=== PATIENT | male | born 1950 | race Caucasian/White ===

== ENCOUNTER → 2019-11-18 15:25 | Outpatient (BNVA) | payer BC, MEDICARE, SELFPAY | PROVIDERS: Family Provider Family Medicine; PCP Registered Nurse; Visit Provider Nurse Practitioner Family | DX: E11.9 Type 2 diabetes mellitus without complications (principal); E83.42 Hypomagnesemia; E78.2 Mixed hyperlipidemia; E55.9 Vitamin D deficiency, unspecified | CPT/HCPCS: 80053; 80061; 81003; 82306; 83036; 83735; 84443 ==

== ENCOUNTER 2020-01-21 06:00 | Outpatient (RCR) | payer MEDICARE, BC, SELFPAY | END 2020-01-31 23:59 | disposition home or self-care (01) | LOC: WPT 06:00 | PROVIDERS: PCP Nurse Practitioner Family; Referring Provider Nurse Practitioner Family; Visit Provider Nurse Practitioner Family | DX: M54.5 Low back pain (principal); G89.29 Other chronic pain | CPT/HCPCS: 97110; 97140; 97161 ==

== ENCOUNTER 2020-02-01 06:00 | Outpatient (RCR) | payer MEDICARE, BC, SELFPAY | END 2020-03-01 23:59 | disposition home or self-care (01) | LOC: WPT 06:00 | PROVIDERS: PCP Nurse Practitioner Family; Referring Provider Nurse Practitioner Family; Visit Provider Nurse Practitioner Family | DX: M54.5 Low back pain (principal); G89.29 Other chronic pain | CPT/HCPCS: 97110; 97112 ==

== ENCOUNTER → 2020-02-19 00:01 | Outpatient (BNVA) | payer MEDICARE, BC, SELFPAY | PROVIDERS: PCP Nurse Practitioner Family; Visit Provider Nurse Practitioner Family | DX: E11.9 Type 2 diabetes mellitus without complications (principal); E78.2 Mixed hyperlipidemia; E55.9 Vitamin D deficiency, unspecified; I10 Essential (primary) hypertension; E83.42 Hypomagnesemia | CPT/HCPCS: 80053; 81003; 83036; 83735; 85025 ==

== ENCOUNTER → 2020-06-04 12:04 | Outpatient (BNVA) | payer MEDICARE, BC, SELFPAY | PROVIDERS: PCP Nurse Practitioner Family; Visit Provider Nurse Practitioner Family | DX: E11.9 Type 2 diabetes mellitus without complications (principal); I10 Essential (primary) hypertension; E78.2 Mixed hyperlipidemia; E83.42 Hypomagnesemia; E55.9 Vitamin D deficiency, unspecified | CPT/HCPCS: 80053; 80061; 81003; 82306; 83036; 83735; 84443; 85025 ==

== ENCOUNTER → 2020-11-09 10:59 | Outpatient (BNVA) | payer MEDICARE, BC, SELFPAY | PROVIDERS: PCP Nurse Practitioner Family; Visit Provider Nurse Practitioner Family | DX: E11.9 Type 2 diabetes mellitus without complications (principal) | CPT/HCPCS: 80053; 81003; 83036; 84153; 85025 ==

== ENCOUNTER → 2021-05-17 09:37 | Outpatient (BNVA) | payer MEDICARE, BC, SELFPAY | PROVIDERS: PCP Registered Nurse; Visit Provider Registered Nurse | DX: E11.9 Type 2 diabetes mellitus without complications (principal); I10 Essential (primary) hypertension | CPT/HCPCS: 80053; 83036; 85025 ==

== ENCOUNTER → 2021-09-07 10:37 | Outpatient (BNVA) | payer MEDICARE, BC, SELFPAY | PROVIDERS: PCP Registered Nurse; Visit Provider Registered Nurse | DX: R30.0 Dysuria (principal); E11.9 Type 2 diabetes mellitus without complications | CPT/HCPCS: 80053; 81000; 83036 ==

== ENCOUNTER → 2021-12-08 13:29 | Outpatient (BNVA) | payer MEDICARE, BC, SELFPAY | PROVIDERS: PCP Registered Nurse; Visit Provider Registered Nurse | DX: I10 Essential (primary) hypertension (principal); E78.2 Mixed hyperlipidemia; E11.9 Type 2 diabetes mellitus without complications | CPT/HCPCS: 80053; 83036 ==

== ENCOUNTER → 2022-03-14 10:42 | Outpatient (BNVA) | payer MEDICARE, BC, SELFPAY | PROVIDERS: PCP Registered Nurse; Visit Provider Registered Nurse | DX: E11.9 Type 2 diabetes mellitus without complications (principal); I10 Essential (primary) hypertension; E78.2 Mixed hyperlipidemia; R49.0 Dysphonia; F17.210 Nicotine dependence, cigarettes, uncomplicated; K59.00 Constipation, unspecified | CPT/HCPCS: 80053; 83036 ==

== ENCOUNTER → 2022-06-19 13:25 | Outpatient (BNVA) | payer MEDICARE, BC, SELFPAY | PROVIDERS: PCP Registered Nurse; Visit Provider Otolaryngology | DX: R49.0 Dysphonia (principal); J38.3 Other diseases of vocal cords; F17.210 Nicotine dependence, cigarettes, uncomplicated | CPT/HCPCS: 31575; 99204 ==

== ENCOUNTER → 2022-06-26 09:21 | Outpatient (BNVA) | payer MEDICARE, BC, SELFPAY | PROVIDERS: PCP Registered Nurse; Visit Provider Registered Nurse | DX: E11.9 Type 2 diabetes mellitus without complications (principal); R39.11 Hesitancy of micturition; I10 Essential (primary) hypertension; K59.00 Constipation, unspecified | CPT/HCPCS: 80053; 81000; 83036; 84153; 87086 ==

== ENCOUNTER 2022-06-29 12:53 | Day surgery (SDC) | payer MEDICARE, BC, SELFPAY ==
[2022-06-28 16:20] VITALS: BMI 30.2
[2022-06-29] VITALS (10 sets, daily range): BP systolic 118–157; BP diastolic 51–91; PULSE 71–82; RESP 16–18; TEMP 36.1–36.2; O2SAT 94–100
[2022-06-29] MEDS: sodium chloride 0.9% 1,000 ML 30 ML IV (13:53)
--- NOTE | 2022-06-29 14:57 | W.PM.OPSUD ---
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
[2022-06-29] MEDS: ceFAZolin 2,000 MG in sodium chloride 0.9% (plus) 50 ML 100 MG IV (15:02)
--- NOTE | 2022-06-29 15:25 | P.ANESASSM_ITS ---
Pre-Anesthetic Assessment Height/Weight: Height 1.75 m Weight 92.986 kg Temp Pulse Resp BP Pulse Ox O2 Del Method 97 F L 74 18 157/79 95 06/29/22 13:42 06/29/22 13:42 06/29/22 13:42 06/29/22 13:42 06/29/22 13:42 06/29/22 13:42 Preop Diagnosis: Vocal cord lesion left/anterior commissure Operation Date: 06/29/22 14:35 Proposed Procedures p [id number] - direct laryngoscopy with excision of vocal cord lesion J38.3,R49.0(Not Applicable) - Luis Kimball MD Familial anesthetic complications: none Was Beta Maurice taken within 24 hours: Yes Was Clonidine taken within 24 hours: N/A Last intake: Intake Last Liquid Date 06/28/22 Last Liquid Time 22:00 Last Solid Date 06/28/22 Last Solid Time 22:00 Social Tobacco and No alcohol Exam alert and oriented x 3 Airway Submandibular: within normal limits Cervical ROM: within normal limits Mallampati: Class III Dentition: full History/ROS No significant history except as noted Pulmonary None reported CV/HEM Hypertension None reported Hepatic None reported GI Gastroesophageal Reflux Disease Metabolic Diabetes Mellitus and Hyperlipidemia [facility] [place] None reported Neuropsych None reported Anesthetic Plan ASA status: 3 Anesthesia: Anesthesia Evaluation and General Risk of > 500 ml blood loss (7ml/kg in children): No Medications/Allergies Home Medications Medication Instructions Recorded Confirmed Last Taken Type omega-3 fatty acids 1,000 mg 1,000 mg PO BID 09/11/19 06/28/22 Unknown History capsule (Fish Oil Concentrate) aspirin 81 mg tablet,delayed 81 mg PO DAILY 11/09/20 06/29/22 1 Day Ago History release ~06/28/22 cholecalciferol (vitamin D3) 50 50 mcg PO DAILY 11/09/20 06/29/22 1 Day Ago History mcg (2,000 unit) capsule ~06/28/22 cxcgnfiq-xta-gmmtu acid 0.4 1 tab PO DAILY 11/09/20 06/29/22 1 Day Ago History mg-lycopene 300 mcg-lutein 250 mcg ~06/28/22 tablet (Centrum Silver) docusate sodium 100 mg capsule 100 mg PO BID 30 days #60 caps 06/26/22 06/29/22 1 Day Ago Rx (Colace) ~06/28/22 amlodipine 5 mg tablet 5 mg PO DAILY 06/28/22 06/29/22 1 Day Ago History ~06/28/22 carvedilol 25 mg tablet 25 mg PO BID 06/28/22 06/29/22 1 Day Ago History ~06/28/22 hydrochlorothiazide 25 mg tablet 25 mg PO DAILY 06/28/22 06/29/22 1 Day Ago Hist ory ~06/28/22 lisinopril 40 mg tablet 40 mg PO DAILY 06/28/22 06/29/22 1 Day Ago History ~06/28/22 magnesium chloride 64 mg 64 mg PO BID 06/28/22 06/29/22 1 Day Ago History (magnesium chloride) ~06/28/22 tablet,delayed release (Mag 64) metformin 1,000 mg tablet 1,000 mg PO BID 06/28/22 06/29/22 1 Day Ago History ~06/28/22 rosuvastatin 5 mg tablet (Crestor) 5 mg PO DAILY 06/28/22 06/29/22 1 Day Ago History ~06/28/22 sitagliptin phosphate 50 mg tablet 50 mg PO DAILY 06/28/22 06/29/22 1 Day Ago History (Januvia) ~06/28/22 Allergies Allergy/AdvReac Type Severity Reaction Status Date / Time zolpidem [From Ambien] Allergy hives Verified 06/29/22 13:50 Current Medications Generic Name Dose Route Start Last Admin Trade Name Freq PRN Reason Stop Dose Admin Sodium Chloride 1,000 mls @ 30 mls/hr 06/29/22 13:45 06/29/22 13:53 Sodium Chloride 0.9% IV 06/30/22 13:44 30 mls/hr .Q24H ALCIRA Administration PFSH Anesthesia Medical History Diabetes mellitus, type II Diabetic retinopathy associated with controlled type 2 diabetes mellitus Essential hypertension Hypertension, well controlled Hypomagnesemia Mixed hyperlipidemia Osteoarthritis of right shoulder Vitamin D deficiency Surgical History History of left cataract surgery Hx of tonsillectomy Hx of vasectomy Social History (Updated 06/26/22 @ 08:49 by Carolyn Aguillon LPN) Smoking and tobacco status: current every day smoker Alcohol intake: never Adopted: No Caregiver/support person: No Lives independently: Yes service: Yes status: Discharged branch: [employer] Current occupational status: retired Current gender identity: Male Data Anesthesia Cardiac Studies: No Data to Display
[2022-06-29] MEDS: EPINEPHrine 1 mg/mL INJ XX (15:27)
--- NOTE | 2022-06-29 15:41 | PM.OP ---
Operative Report Date of procedure: June 29, 2022 Pre-op diagnosis: Preop Diagnosis Vocal cord lesion left/anterior commissure Post-op diagnosis: Left true vocal cord/anterior commissure lesion Post-op findings: Exophytic irregular whitish appearance lesion at the anterior aspect of the left vocal cord to the anterior commissure Procedure done: Direct suspension microscopic laryngoscopy with biopsy of left true vocal cord lesion. Implants: No implants Specimens removed/disposition: Left true vocal cord specimen Pathology: Left true vocal cord biopsies Surgeon: Luis Kimball MD Anesthesia: General Estimated blood loss: 5 mL Complications: No complications encountered Findings: 72-year-old male patient with hoarseness for several months and finding on flexible laryngoscopy of the left anterior true vocal cord lesion that extended to the anterior commissure. Brief History: 72-year-old male patient with chronic hoarseness has a left anterior true vocal cord lesion exophytic and whitish in color and extending to the anterior commissure. Cord mobility was normal. Patient being brought to the operating room at this time to undergo direct suspension microscopic laryngoscopy and biopsy of this lesion. The procedure its risks and complications were explained in detail to the patient. These risks included bleeding infection scarring swelling bruising hoarseness persisting and need for additional treatment. With these things understood informed consent was granted and witnessed. Procedure: Description of procedure: The patient was placed on the operating table in the supine position. Adequate general endotracheal tube anesthesia was obtained. The table was rotated 90 degrees. His eyes were taped shut. Head drape was applied in usual fashion. A timeout was accomplished identifying the patient date of plan procedure allergies fire risk and medications given. With all in agreement the procedure continued. An anterior commissure laryngoscope was inserted over an upper tooth guard into the hypopharynx and then laryngeal area. This was inserted till the cord were visualized. This was then suspended from a Zuniga stand. The lesion was identified and biopsied in multiple pieces with up-biting forceps. After the biopsy was completed the area was suctioned and then 1-1000 epinephrine was applied with small cottonoid pledgets. These were left in place for about 5 minutes. Bleeding was under control. An LTA was dispensed with 2% Xylocaine to the larynx to help prevent excessive coughing or clearing of the throat after surgery. The suspension was taken down. The scope was removed. Observation was carried out while the scope was being removed and thick secretions were suctioned. After removal of the scope the oropharynx was suctioned as well as the hypopharynx with Yankauer suction. There was no active bleeding encountered at this point. Patient was returned to anesthesia for wake-up and extubation. Drapes were removed and tape was removed from the patient's eyes as well. Patient tolerated the procedure well and estimated blood loss of 5 mL and arrived in recovery in stable condition.
--- NOTE | 2022-06-29 16:38 | ANE.PACU2 ---
Inpatient post-anesthesia follow up: Airway intact: Yes Vital signs: Temperature 97 F Pulse Rate 73 Respiratory Rate 18 Blood Pressure 144/72 Pulse Oximetry 94 Oxygen Delivery Me thod Room Air Oxygen Flow Rate 6 Fraction of Inspir ed Oxygen Hydration adequate: Yes Nausea and vomiting: No Pain level: 2 Mental status: Baseline
[2022-06-30 06:22] LABS: Glucose Point of Care 112 mg/dL (70-110)
== END 2022-06-29 17:15 | disposition home or self-care (01) ==
PROVIDERS: PCP Registered Nurse; Visit Provider Otolaryngology
PROC: 0CJS8ZZ Inspection of Larynx, Via Natural or Artificial Opening Endoscopic (ICD-10-PCS; CPT 31535; principal; 2022-06-29 14:25)
DX: J38.3 Other diseases of vocal cords (principal); R49.0 Dysphonia; F17.210 Nicotine dependence, cigarettes, uncomplicated; I10 Essential (primary) hypertension; K21.9 Gastro-esophageal reflux disease without esophagitis; E11.319 Type 2 diabetes mellitus with unspecified diabetic retinopathy without macular edema; Z79.82 Long term (current) use of aspirin; Z79.84 Long term (current) use of oral hypoglycemic drugs; E78.2 Mixed hyperlipidemia
CPT/HCPCS: 31535; 36416; 82962; 88305; 88342; J0171; J0690; J1100; J2405; J2704; J2710; J3010; J3490; J7030

== ENCOUNTER → 2022-07-07 10:06 | Outpatient (BNVA) | payer MEDICARE, BC, SELFPAY | PROVIDERS: PCP Registered Nurse; Visit Provider Otolaryngology | DX: J38.3 Other diseases of vocal cords (principal); R49.0 Dysphonia | CPT/HCPCS: 99213 ==

== ENCOUNTER → 2022-11-14 10:41 | Outpatient (BNVA) | payer MEDICARE, BC, SELFPAY | PROVIDERS: PCP Registered Nurse; Visit Provider Nurse Practitioner Family | DX: M65.331 Trigger finger, right middle finger (principal) | CPT/HCPCS: 20550; 99213; J3301 ==

== ENCOUNTER → 2022-12-19 10:18 | Outpatient (BNVA) | payer MEDICARE, BC, SELFPAY | PROVIDERS: PCP Registered Nurse; Visit Provider Registered Nurse | DX: E11.9 Type 2 diabetes mellitus without complications (principal); N40.1 Benign prostatic hyperplasia with lower urinary tract symptoms; R39.16 Straining to void; I10 Essential (primary) hypertension | CPT/HCPCS: 80053; 81000; 82043; 83036; 84153; 85025 ==

== ENCOUNTER → 2023-01-08 09:58 | Outpatient (BNVA) | payer MEDICARE, BC, SELFPAY | PROVIDERS: PCP Registered Nurse; Visit Provider Otolaryngology | DX: J38.7 Other diseases of larynx (principal); R49.0 Dysphonia; F17.210 Nicotine dependence, cigarettes, uncomplicated | CPT/HCPCS: 31575; 99213 ==

== ENCOUNTER → 2023-01-09 08:21 | Outpatient (BNVA) | payer MEDICARE, BC, SELFPAY | PROVIDERS: PCP Registered Nurse; Visit Provider Podiatrist Foot & Ankle Surgery | DX: E11.8 Type 2 diabetes mellitus with unspecified complications (principal); L60.3 Nail dystrophy; Z79.84 Long term (current) use of oral hypoglycemic drugs | CPT/HCPCS: 11721; 99203 ==

== ENCOUNTER → 2023-06-11 09:36 | Outpatient (BNVA) | payer MEDICARE, BC, SELFPAY | PROVIDERS: PCP Registered Nurse; Visit Provider Registered Nurse | DX: E11.9 Type 2 diabetes mellitus without complications (principal) | CPT/HCPCS: 80053; 83036 ==